=== PATIENT | male | born 1980 ===

== ENCOUNTER 2016-11-17 21:42 | Emergency (ER) | payer MEDICAID, OTHER ==
[~2016-11-17] VITALS: Ht 162.6 cm; Wt 228.6 kg
[~2016-11-17 21:42] MED LIST: ADV250INH IH; HYDR1TAB PO; PRE10 PO; Pro Air INH; SIN10 PO; [UNRECOGNIZED DRUG - CODE] PO
[2016-11-17 22:24] VITALS: BP 129/77; PULSE 107; RESP 18; O2SAT 98
--- NOTE | 2016-11-17 23:29 | ED.REPORT ---
HPI-Rash / Abscess Date of Service Nov 17, 2016 ED Provider: Ella Lau MD This is a 36 year old morbidly obese male with a history of asthma presenting complaining of rash to R leg that began 2 days ago.Rash to posterior L thigh that is constantly painful. Also reports fever with relief from Tylenol. Denies nausea, vomiting, abdominal pain, constipation, diarrhea, cough, or headache. Nursing Notes Stated Complaint: INFECTION OR SPIDER BITE Chief Complaint: Skin Rash/Abscess Nursing Notes Reviewed: Yes Allergies: Coded Allergies: ibuprofen (Verified Allergy, Intermediate, Nausea severe GI distress, 28/08) Scheduled ([Pro Air]) 2 INH BID 2 puffs BID Clindamycin (Clindamycin) 300 Mg Capsule 300 MG PO QID Flutic/Salmet-Expunged Drug, Do Not Renew! (Advair 500/50-Expunged Drug, Do Not Renew!) 60 Puff Disk 1 PUFF IH BID 250/50 Hydrocod/APAP-Expunged, Do Not Renew! (VICODIN 5/500-Expunged Drug, Do Not Renew ) 1 Udtab Tablet 1-2 PO PRN Every 6 hours as needed for pain Methadone-Expunged Drug, Do Not Renew! (Methadone-Expunged Drug, Do Not Renew!) 10 Mg/1 Ml Oral.conc 90 MG PO DAILY Montelukast-Expunged Drug, Do Not Renew! (Singulair-Expunged Drug, Do Not Renew! ) 10 Mg Tablet 10 MG PO DAILY PredniSONE-Expunged Drug, Do Not Renew! (PredniSONE-Expunged Drug, Do Not Renew! ) 10 Mg Tab 10 MG PO DAILY General Time Seen by MD: 23:28 Chief Complaint Rash Hx Obtained From: Patient Arrived By: Walk-in Onset Occurred: 2 days ago Symptom Duration: Since onset Severity: Current: Moderate Pertinent Negative: Pt denies other symptoms Recent Healthcare: No recent doctor visit, No recent hospitalization Similar Sx Previous: No Past Medical History Past Medical History Reports: Asthma Past Surgical History Denies Ambulatory Status Independent Review of Systems Constitutional: Reports: Chills, Fever Respiratory: Denies: Non-productive cough, Shortness of breath GI: Denies: Abdominal pain, Diarrhea, Nausea, Vomiting Musculoskeletal: Reports: Extremity pain Skin: Reports Rash Complete sys rev & neg: except as marked. Physical Exam Initial Vital Signs Vital Signs (First) Date Time Temp Pulse Resp B/P Pulse Ox O2 Delivery O2 Flow Rate FiO2 11/17/16 22:24 37.4 107 18 129/77 98 Room Air Initial VS: Reviewed Head / Eyes: Atraumatic, Normocephalic, PERRL ENT: Mucous membranes moist, Conjunctiva normal, No scleral icterus Neck: Supple, Non-tender, Full range of motion Respiratory: Breath sounds normal, Clear to auscultation, No respiratory distress Abdomen / GI: Soft, Non-tender, No guarding, No rebound, No distention Extremities: Vascular intact, Neuro intact Neurologic: Alert, Oriented, Nonfocal Psychiatric: Mood/affect normal, Behavior normal, Normal thought content General/Constitutional: Awake, Alert Appearance / Presentation: Positive: Obese Skin: Dry Rash / Lesion Location: Positive: Thigh L POsterior R thigh is cellulitis with purulent drainage from a central ulcer. Cardiovascular: Regular rhythm, Heart sounds NL, No gallop, No murmurs, No rubs Heart Rate / Rhythm: Positive: Tachycardia Interpretation & Diagnostics Lab Results Interpretation Result Diagram: 11/18/16 0039 11/18/16 0039 Test 11/18/16 00:39 11/18/16 01:15 White Blood Count 9.5th/mm3 (3.8-10.1) Red Blood Count 4.42mil/mm3 (4.40-5.80) Hemoglobin 11.3g/dL (13.8-17.2) Hematocrit 38.7% (41.0-50.0) Mean Corpuscular Volume 87.6fL (81-100) Mean Corpuscular Hemoglobin 25.6pg (27.0-35.0) Mean Corpuscular Hemoglobin Concent 29.2% (32.0-37.0) Red Cell Distribution Width 15.4% (12.3-15.4) Platelet Count 220bil/L (150-400) Neutrophils (%) (Auto) 71.1% (40-74) Lymphocytes (%) (Auto) 17.2% (14-46) Monocytes (%) (Auto) 7.2% (4-12) Eosinophils (%) (Auto) 3.9% (0-5) Basophils (%) (Auto) 0.4% (0-3) Sodium Level 138mEq/L (134-144) Potassium Level 3.9mEq/L (3.5-5.2) Chloride Level 100mEq/L (97-108) Carbon Dioxide Level 29mmol/L (18-29) Blood Urea Nitrogen 6mg/dL (6-20) Creatinine 0.52mg/dL (0.76-1.27) Estimat Glomerular Filtration Rate 192mL/min (>59) Glucose Level 88mg/dL (60-99) Lactic Acid Level 0.7mmol/L (0.4-2.0) Calcium Level 8.2mg/dL (8.5-10.1) Total Bilirubin 0.5mg/dL (0.0-1.2) Aspartate Amino Transf (AST/SGOT) 10U/L (0-50) Alanine Aminotransferase (ALT/SGPT) 8U/L (0-44) Alkaline Phosphatase 85U/L (25-150) Total Protein 8.1g/dL (6.4-8.4) Albumin 2.9g/dL (3.4-5.0) Urine Color Dark yellow (YELLOW) Urine Appearance Clear (CLEAR,HAZY) Urine pH 8.5 (5.0-8.0) Urine Specific Brady 1.020 (1.003-1.035) Urine Protein Negativemg/dL (NEG,TRACE) Urine Glucose (UA) Negativemg/dL (NEGATIVE) Urine Ketones Negativemg/dL (NEGATIVE) Urine Occult Blood Negative (NEGATIVE) Urine Nitrite Negative (NEGATIVE) Urine Bilirubin Negative (NEGATIVE) Urine Urobilinogen 1.0mg/dL (NORMAL) Urine Leukocyte Esterase Negative (NEGATIVE) Urine RBC 0-2/hpf (0-2) Urine WBC 0-5/hpf (0-5) Urine Epithelial Cells Occasional/hpf (NONE-MOD) Urine Crystals Amorphous phosphates Urine Bacteria Few/hpf (NONE-FEW) Urine Hyaline Casts None/lpf (NONE) Urine Granular Casts None seen (NONE SEEN) Urine Waxy Casts None seen (NONE SEEN) Urine Red Blood Cell Casts None seen (NONE SEEN) Urine White Blood Cell Casts None seen (NONE SEEN) Urine Mucus Present (None Seen) Urine Trichomonas None seen (NONE SEEN) Urine Yeast None (NONE SEEN) Urinalysis Comment None Urine Culture Reflexed Not indicated Re-Eval/Medical Decision Med Decision/Clinical Course 36-year-old super morbidly obese male here with pain to the right posterior thigh. Differential diagnosis includes but is not limited to abscess versus cellulitis versus insect bite versus DVT. Exam is not consistent at this time with DVT. There is purulent drainage from a small ulcer in his posterior thigh with extensive surrounding cellulitis. Patient has normals white count, with very mild anemia. His CMP is unremarkable. He has a negative lactate. I have offered him admission for his cellulitis with abscess, however, he has declined. He has chosen to leave AGAINST MEDICAL ADVICE. He is alert and oriented 4, GCS 15, not clinically intoxicated, and of decision-making capacity. I have explained to him the risks of his leaving, up to and including loss of leg, and , and he does not want to remain in the emergency department, or be admitted to the hospital. I have given him a prescription for clindamycin and advised him to follow up as soon as possible with his primary care physician. He is aware and amenable to this plan and is choosing to leave AGAINST MEDICAL ADVICE. Re-Evaluation/Progress : Time of Eval: 00:53 Re-Evaluation/Progress Note: Discussed need for admission, pt would like to leave AMA Counseled Regarding: Diagnosis, Lab results, Need for follow-up, Need for admission Discharge & Departure Impression: Primary Impression: Cellulitis Site of cellulitis: extremity Site of cellulitis of extremity: lower extremity Laterality: right Qualified Code: L03.115 - Cellulitis of right lower limb Additional Impression: Abscess Disposition: AGAINST MEDICAL ADVICE Discharge Condition All VS Reviewed: Yes Condition: Stable Patient Instructions: Cellulitis (ED) Additional Instructions: You are leaving AGAINST MEDICAL ADVICE. I recommend that you be admitted to the hospital for IV antibiotic treatment but you are choosing to leave. Take the antibiotics as prescribed. Follow-up with your primary care provider. Return to the emergency department for any new or worsening symptom Referrals: Tariq Serra MD (PCP) Scribe Attestation Portions of this note were transcribed by Wili Pappas. I, Dr. Lau personally performed the history, physical exam and medical decision-making; I reviewed and confirmed the accuracy of the information in the transcribed note. Signed by: phyllis Castanon. 11/17/2016, 03:00. Ella Lau MD Nov 17, 2016 23:29 WILI PAPPAS Nov 17, 2016 23:31
[2016-11-17] MEDS ORDERED: 0.9% Sodium Chloride 1,000 ML IV ONE (23:42)
[2016-11-17] MEDS ORDERED: HYDROmorphone 1 mg/mL Inj IVPUSH ONE (23:45)
[2016-11-17] MEDS ORDERED: Vancomycin Inj 1,000 MG in IV Premix 1 EACH IV ONE (23:45)
[2016-11-17] MEDS ORDERED: Piperacillin-Tazo 3.375 Gm Inj 3.375 GM in Dextrose 5% Minibag Plus 50 ML IV ONE (23:45)
[2016-11-18 01:02] LABS: BASOPHILS % (AUTO) 0.4 % (0-3); EOSINOPHILS % (AUTO) 3.9 % (0-5); MONOCYTES % (AUTO) 7.2 % (4-12); Mean Corpuscular Hemoglobin 25.6 pg (27.0-35.0); Mean Corpuscular Volume 87.6 fL (81-100); NEUTROPHILS % (AUTO) 71.1 % (40-74); Platelet Count 220 bil/L (150-400)
[2016-11-18] MEDS ORDERED: HYDROcodone-APAP 5-325 mg Tablet PO ONE (01:35)
[2016-11-18] MEDS ORDERED: CLIN-78 PO (01:49)
[2016-11-18 01:51] LABS: APPEARANCE,URINE CLEAR (CLEAR,HAZY); COLOR,URINE DARK YELLOW (YELLOW); OCCULT BLOOD,URINE NEGATIVE (NEGATIVE); PH,URINE 8.5 (5.0-8.0)
[2016-11-18 03:24] VITALS: BP 94/43; PULSE 98; RESP 20; O2SAT 96
[2016-11-19] MEDS ORDERED: PRE10 PO (01:52)
[2016-11-19] MEDS ORDERED: METH40TA2 PO (01:53)
[2016-11-19] MEDS ORDERED: ALBU8.5H2 INHALATION (21:00)
== END 2016-11-18 03:26 | disposition left against medical advice (07) ==
LOC: SED 21:42
DX: L03.115 Cellulitis of right lower limb (principal); L02.415 Cutaneous abscess of right lower limb; R50.9 Fever, unspecified; J45.909 Unspecified asthma, uncomplicated; Z88.8 Allergy status to other drugs, medicaments and biological substances
CPT/HCPCS: 36415; 80053; 81000; 83605; 85025; 87040; 96361; 96365; 96367; 96375; 99285; J1170; J2543; J3370; J7030

== ENCOUNTER 2016-11-18 17:48 | Inpatient (IN) | payer MEDICAID, OTHER ==
[~2016-11-18] VITALS: Ht 162.6 cm; Wt 225.2 kg
[~2016-11-18 17:48] MED LIST changes: +CLIN-78 PO
[2016-11-18 18:15] VITALS: BP 127/75; PULSE 105; RESP 12; O2SAT 97
--- NOTE | 2016-11-18 19:54 | ED.REPORT ---
HPI-Extremity Problem Lower Date of Service Nov 18, 2016 ED Provider: Luis Driver MD Pt is a 36 year old male with a hx of asthma presenting to the ED complaining of pain, redness and swelling to his right thigh onset 2-3 days ago. Pt was seen in the ED last night, diagnosed with cellulitis and left AMA this morning to get a second opinion. He now returns because the pain is a lot worse. Pt chronically takes 20mg prednisone daily and Advair. Pt took 1 Clindamycin this morning. Nursing Notes Stated Complaint: POSSIBLE CELLULITIS Chief Complaint: Extremity Trauma Nursing Notes Reviewed: Yes Allergies: Coded Allergies: ibuprofen (Verified Allergy, Intermediate, Nausea severe GI distress, 28/08) Scheduled ([Pro Air]) 2 INH BID 2 puffs BID Clindamycin (Clindamycin) 300 Mg Capsule 300 MG PO QID Flutic/Salmet-Expunged Drug, Do Not Renew! (Advair 500/50-Expunged Drug, Do Not Renew!) 60 Puff Disk 1 PUFF IH BID 250/50 Hydrocod/APAP-Expunged, Do Not Renew! (VICODIN 5/500-Expunged Drug, Do Not Renew ) 1 Udtab Tablet 1-2 PO PRN Every 6 hours as needed for pain Methadone-Expunged Drug, Do Not Renew! (Methadone-Expunged Drug, Do Not Renew!) 10 Mg/1 Ml Oral.conc 90 MG PO DAILY Montelukast-Expunged Drug, Do Not Renew! (Singulair-Expunged Drug, Do Not Renew! ) 10 Mg Tablet 10 MG PO DAILY PredniSONE-Expunged Drug, Do Not Renew! (PredniSONE-Expunged Drug, Do Not Renew! ) 10 Mg Tab 10 MG PO DAILY General Time Seen by MD: 19:49 Chief Complaint Other (Possible cellulitis) Hx Obtained From: Patient Arrived By: Walk-in Onset Occurred: 3 days ago Symptom Duration: Since onset Location: : Thigh right Quality: Painful Severity: Current: Severe Severity: Maximum: Severe Recent Healthcare: No recent hospitalization, Recent doctor visit Similar Sx Previous: No Past Medical History Past Medical History Reports: Asthma Past Surgical History Denies Ambulatory Status Independent Review of Systems Constitutional: Denies: Fever Skin: Reports Rash, Reports Swelling Complete sys rev & neg: except as marked. Respiratory: Denies: Shortness of breath GI: Denies: Vomiting Physical Exam Physical Exam Notes: morbidly obese nontoxic Initial Vital Signs Vital Signs (First) Date Time Temp Pulse Resp B/P Pulse Ox O2 Delivery O2 Flow Rate FiO2 11/18/16 18:15 36.2 105 12 127/75 97 Room Air Initial VS: Reviewed Head / Eyes: Atraumatic, Normocephalic, PERRL Abdomen / GI: No distention Upper Extremities: Vascular intact, Neuro intact, No swelling, No tenderness Skin: Warm, Dry, No cyanosis Neurologic: Alert, Oriented, Nonfocal Psychiatric: Mood/affect normal, Behavior normal, Normal thought content Lower Extremity / Pelvis / MS: No deformity, Neurologic intact, Vascular intact Right posterior thigh 10 cm indurated tender area. At the center punctate lesion, doesn't appear to be draining right now. General/Constitutional: Awake, Alert Distress / Hydration: Positive: Distress moderate Appearance / Presentation: Positive: Obese, morbidly Respiratory / Chest: No respiratory distress Wheezing / Retractions: Positive: Wheeze insp/exp diffuse (Scattered) Cardiovascular: Heart rate NL, Regular rhythm, Heart sounds NL, No gallop, No murmurs, No rubs Interpretation & Diagnostics Lab Results Interpretation Result Diagram: 11/18/16202411/18/162024 Test 11/18/16 20:25 11/18/16 20:56 White Blood Count 10.7th/mm3 (3.8-10.1) Red Blood Count 4.19mil/mm3 (4.40-5.80) Hemoglobin 10.6g/dL (13.8-17.2) Hematocrit 36.6% (41.0-50.0) Mean Corpuscular Volume 87.4fL (81-100) Mean Corpuscular Hemoglobin 25.3pg (27.0-35.0) Mean Corpuscular Hemoglobin Concent 29.0% (32.0-37.0) Red Cell Distribution Width 15.3% (12.3-15.4) Platelet Count 231bil/L (150-400) Neutrophils (%) (Auto) 73.6% (40-74) Lymphocytes (%) (Auto) 15.6% (14-46) Monocytes (%) (Auto) 6.3% (4-12) Eosinophils (%) (Auto) 3.8% (0-5) Basophils (%) (Auto) 0.4% (0-3) Sodium Level 138mEq/L (134-144) Potassium Level 3.9mEq/L (3.5-5.2) Chloride Level 101mEq/L (97-108) Carbon Dioxide Level 28mmol/L (18-29) Blood Urea Nitrogen 5mg/dL (6-20) Creatinine 0.45mg/dL (0.76-1.27) Estimat Glomerular Filtration Rate 227mL/min (>59) Glucose Level 87mg/dL (60-99) Calcium Level 7.9mg/dL (8.5-10.1) Total Bilirubin 0.5mg/dL (0.0-1.2) Aspartate Amino Transf (AST/SGOT) 16U/L (0-50) Alanine Aminotransferase (ALT/SGPT) 6U/L (0-44) Alkaline Phosphatase 79U/L (25-150) Total Protein 7.6g/dL (6.4-8.4) Albumin 2.8g/dL (3.4-5.0) Lactic Acid Level 0.8mmol/L (0.4-2.0) Re-Eval/Medical Decision Med Decision/Clinical Course 36-year-old supervision male presenting with a right lower extremity cellulitis. Ultrasound does not identify a significant abscess, he is hemodynamically stable his chronic steroid use is noted. Has been started on Vanco and Zosyn. Will be admitted to the hospitalist service. Re-Evaluation/Progress #1: Time of Eval: 22:09 Patient Status: Condition improved Re-Evaluation/Progress Note: Performed physical exam. Re-Evaluation/Progress #2: Time of Eval: 22:58 Patient Status: Condition improved Re-Evaluation/Progress Note: Discussed plan for admission. Pt understands and agrees with plan. Consultation : Referral / Consult Name: Alee Mckeon MD Consulted With: Hospitalist Call Returned at: 22:45 Die Maker Electronic: Will see patient, Agrees with plan, Accepts admit Counseled Regarding: Diagnosis, Lab results, Need for follow-up, When/why to return to ED Discharge & Departure Impression: Primary Impression: Cellulitis Site of cellulitis: extremity Site of cellulitis of extremity: lower extremity Laterality: right Qualified Code: L03.115 - Cellulitis of right lower limb Disposition: ADMITTED TO HOSPITAL Discharge Condition All VS Reviewed: Yes Condition: Improved Referrals: Tariq Serra MD (PCP) Jeet Attestation Portions of this note were transcribed by Tyesha Tolliver. I, Dr. Driver personally performed the history, physical exam and medical decision-making; I reviewed and confirmed the accuracy of the information in the transcribed note. Signed by : Jeet Newell, 11/18/2016 and 2342. copies to: Tariq Serra MD, Donald L MD Nov 18, 2016 19:54 TYESHA TOLLIVER Nov 18, 2016 20:19
[2016-11-18 20:50] LABS: BASOPHILS % (AUTO) 0.4 % (0-3); EOSINOPHILS % (AUTO) 3.8 % (0-5); MONOCYTES % (AUTO) 6.3 % (4-12); Mean Corpuscular Hemoglobin 25.3 pg (27.0-35.0); Mean Corpuscular Volume 87.4 fL (81-100); NEUTROPHILS % (AUTO) 73.6 % (40-74); Platelet Count 231 bil/L (150-400)
[2016-11-18] MEDS: HYDROmorphone 1 mg/mL Inj IVPUSH PRN (22:41)
[2016-11-18] MEDS ORDERED: Vancomycin Dose per Pharmacist XX SCH (22:45)
[2016-11-18] MEDS ORDERED: Piperacillin-Tazo 3.375 Gm Inj 3.375 GM in Dextrose 5% Minibag Plus 50 ML IV ONE (22:45)
[2016-11-18] MEDS ORDERED: Vancomycin Inj 2,500 MG in 0.9% Sodium Chloride 1,000 ML IV ONE (23:15)
[2016-11-18] MEDS ORDERED: Polyethylene Glycol (PEG) 17 Gm Powder PO PRN (23:20)
[2016-11-18] MEDS ORDERED: fentaNYL-PF 50 mCg/mL 2 mL Inj IV PRN (23:20)
[2016-11-18] MEDS ORDERED: Ondansetron 2 mg/mL 2 mL Inj IVPUSH PRN (23:20)
[2016-11-18] MEDS ORDERED: Alum-Mag Hydrox-Simeth 30 mL Suspension PO PRN (23:20)
--- NOTE | 2016-11-18 23:29 | PCM.HPMED ---
Subjective Date of Service Nov 18, 2016 Primary Provider: Admitting Physician: Primary Care Physician: Tariq Serra MD Attending Physician: Admit Status: From the Emergency Department, Full Admit, Non-Telemetry Chief Complaint: Right posterior thigh cellulitis History of Present Illness: This is a 36-year-old obese male who has a history of asthma for which he is on chronic steroids and has over the past 2-3 days noted increasing redness and pain in his right area Upper posterior. He was seen here in the emergency room for this and left AMA this morning. Over he is back with increasing pain. He denies any fevers or chills. He denies a history of diabetes. He denies a history of obstructive sleep apnea although it is not clear whether he has been checked for this or not. His evaluation in the emergency room includes a count of 10.7. He is afebrile has a heart rate 105 with blood pressure 127/75 and respiratory rate of 12. Lactic acid is 0.8. Bicarbonate is 28. He currently is having an ultrasound of the affected area to see if there is any abscess formation that will require I&D. Review of Systems: Other review of systems are reviewed and are negative except for as in history of present illness. Allergies Coded Allergies: ibuprofen (Verified Allergy, Intermediate, Nausea severe GI distress, 28/08) Home Medications ([Pro Air]) 2 INH BID 2 puffs BID Clindamycin (Clindamycin) 300 Mg Capsule 300 MG PO QID Flutic/Salmet-Expunged Drug, Do Not Renew! (Advair 500/50-Expunged Drug, Do Not Renew!) 60 Puff Disk 1 PUFF IH BID 250/50 Hydrocod/APAP-Expunged, Do Not Renew! (VICODIN 5/500-Expunged Drug, Do Not Renew ) 1 Udtab Tablet 1-2 PO PRN Every 6 hours as needed for pain Methadone-Expunged Drug, Do Not Renew! (Methadone-Expunged Drug, Do Not Renew!) 10 Mg/1 Ml Oral.conc 90 MG PO DAILY Montelukast-Expunged Drug, Do Not Renew! (Singulair-Expunged Drug, Do Not Renew! ) 10 Mg Tablet 10 MG PO DAILY PredniSONE-Expunged Drug, Do Not Renew! (PredniSONE-Expunged Drug, Do Not Renew! ) 10 Mg Tab 10 MG PO DAILY PMH Reports: Asthma Past Surgical History Denies Ambulatory Status Independent Family History Does have a family history of type II diabetes and coronary artery disease Social History Hx Alcohol Use: Yes (OCCASIONAL) Hx Substance Use: No Hx Tobacco Use: Yes (quit 6 months ago) Living Arrangement: with Friends/Roommate (lives with girlfriend) Exam Vital Signs Vital Sign - Last Date Time Temp Pulse Resp B/P Pulse Ox O2 Delivery O2 Flow Rate FiO2 11/18/16 18:15 36.2 105 12 127/75 97 Room Air Exam Constitutional: Morbidly obese male in moderate pain distress Head: Normocephalic atraumatic Eyes: PERRLA DC EOMI Mouth: No lesions Neck no adenopathy Chest clear to auscultation Court regular rate and rhythm S1-S2 without murmur Abdomen soft obese nontender bowel sounds present Extremity exam: Left leg reveals trace bilateral pedal edema obese, right leg reveals indurated protuberant area in the right posterior thigh area about 10 cm of induration. No drainage noted at the center there appears to be a punctate lesion. Skin: As above Psych: Normal mood and affect Neuro: Alert and oriented 3, motor strength is intact bilaterally Lab and Diagnostics Labs Laboratory Tests 72 Hours Test 11/18/16 20:25 11/18/16 20:56 White Blood Count 10.7th/mm3 (3.8-10.1) Red Blood Count 4.19mil/mm3 (4.40-5.80) Hemoglobin 10.6g/dL (13.8-17.2) Hematocrit 36.6% (41.0-50.0) Mean Corpuscular Volume 87.4fL (81-100) Mean Corpuscular Hemoglobin 25.3pg (27.0-35.0) Mean Corpuscular Hemoglobin Concent 29.0% (32.0-37.0) Red Cell Distribution Width 15.3% (12.3-15.4) Platelet Count 231bil/L (150-400) Neutrophils (%) (Auto) 73.6% (40-74) Lymphocytes (%) (Auto) 15.6% (14-46) Monocytes (%) (Auto) 6.3% (4-12) Eosinophils (%) (Auto) 3.8% (0-5) Basophils (%) (Auto) 0.4% (0-3) Sodium Level 138mEq/L (134-144) Potassium Level 3.9mEq/L (3.5-5.2) Chloride Level 101mEq/L (97-108) Carbon Dioxide Level 28mmol/L (18-29) Blood Urea Nitrogen 5mg/dL (6-20) Creatinine 0.45mg/dL (0.76-1.27) Estimat Glomerular Filtration Rate 227mL/min (>59) Glucose Level 87mg/dL (60-99) Calcium Level 7.9mg/dL (8.5-10.1) Total Bilirubin 0.5mg/dL (0.0-1.2) Aspartate Amino Transf (AST/SGOT) 16U/L (0-50) Alanine Aminotransferase (ALT/SGPT) 6U/L (0-44) Alkaline Phosphatase 79U/L (25-150) Total Protein 7.6g/dL (6.4-8.4) Albumin 2.8g/dL (3.4-5.0) Lactic Acid Level 0.8mmol/L (0.4-2.0) Result Diagram: 11/18/16202411/18/162024 Assessment & Plan # Right cellulitis with possible abscess, acute, present on admission IV Zosyn and IV vancomycin will be initiated Await ultrasound report for possible abscess and need for I&D Check nasal MRSA screen # Asthma, chronic, present on admission This is stable. Continue current medications which include chronic steroid therapy # Morbid obesity, chronic, present on admission Encourage weight loss and consider nutritional consult while in-house or outpatient # DVT prophylaxis Placed on subcutaneous prophylactic heparin # Current status Full code Pain Evaluation: Adequate Pain Control VTE Prophylaxis: Sub-Q Heparin (Unfractionated) Resuscitation Status: CPR: Attempt Resuscitation Time spent 60 minutes Alee Mckeon MD Nov 18, 2016 23:29
--- NOTE | 2016-11-18 23:56 | PCM.PHAPRO ---
Progress Date of Service: Nov 18, 2016 Right posterior thigh cellulitis Vancomycin Management per Pharmacy: Indication: Cellulitis of R upper posterior Goal Trough: 10-15 mg/dL Age: 36 yo Weight: 228 kg Labs: WBC: 10.7 SrCr: 0.45 mg/dL Est CrCl: ~120 mL/min Nephrotoxic Risks: Zosyn IV Recommendation: Load: Vancomycin 2500 mg IV x 1 (11 mg/kg) Maintenance Dose: Vancomycin 2000 mg IV Q12h (will start 8 hours post loading dose) Vancomycin trough: Draw on 11/20 @ 1930 prior to 4th maintenance dose Pharmacy to continue to monitor and adjust daily as necessary. Thank You, Sadaf Burns, Pharm D. Sadaf Burns Nov 18, 2016 23:56
[2016-11-19] MEDS: HYDROmorphone 1 mg/mL Inj IVPUSH PRN (00:17)
[2016-11-19 01:02] LABS: APPEARANCE,URINE HAZY (CLEAR,HAZY); COLOR,URINE DARK YELLOW (YELLOW); OCCULT BLOOD,URINE NEGATIVE (NEGATIVE); PH,URINE 7.5 (5.0-8.0)
[2016-11-19 01:04] VITALS: BP 143/72; PULSE 91; RESP 18; O2SAT 90
[2016-11-19] MEDS ORDERED: PRE10 PO (01:52)
[2016-11-19] MEDS ORDERED: METH40TA2 PO (01:53)
--- NOTE | 2016-11-19 02:00 | NUR ---
Admit: Pt arrived to room 3030 from ED via Beri Bed, pt able to stand for weight. Antibiotic infusing, RA, no c/o pain. Admit completed, home medications reviewed with patient and entered; made aware. Pt does take ProAir inhaler, could not verify dosing, just stated he takes it as a rescue inhaler several times a day PRN. [facility]hift will need to verify this medication with pts pharmacy or PCP. Medication is currently in pts med drawer, pt has high anxiety for inhaler to be out of his site. Dayshift RN with need to verify med and then send this medication home with pts family when pharmacy can send up supply for use while in the hospital. pleasant and cooperative with care.
[2016-11-19] MEDS: Heparin 5,000 Unit/mL Inj SUBQ SCH ×3 (02:11→17:20)
[2016-11-19] MEDS: Piperacillin-Tazo 3.375 Gm Inj 3.375 GM in Dextrose 5% Minibag Plus 50 ML IV SCH ×2 (02:11→02:21)
[2016-11-19] MEDS: predniSONE 10 mg Tablet PO SCH ×3 (02:19→17:26)
[2016-11-19] MEDS: Fluticasone-Salmeterol 500-50 Inhaler INHALATION SCH ×3 (03:35→20:16)
[2016-11-19] MEDS: HYDROcodone-APAP 5-325 mg Tablet PO PRN ×3 (03:35→19:41)
--- NOTE | 2016-11-19 04:44 | NUR ---
Oxygen/Pain: Pt placed on 4L O2 with cont pulse ox while sleeping, scored high for GARETT. C/o r leg pain, medication administered. Slept off/on throughout the night, pleasant and cooperative with care.
[2016-11-19 05:56] VITALS: BP 123/66; PULSE 81; RESP 16; O2SAT 93
[2016-11-19] MEDS: 0.9% Sodium Chloride 1,000 ML IV SCH ×2 (07:48→09:17)
[2016-11-19] MEDS ORDERED: METHADONE 40 MG PO SCH (08:00)
[2016-11-19] MEDS ORDERED: Fluticasone-Salmererol 250-50 Inhaler INHALATION SCH (08:30)
[2016-11-19] MEDS: Vancomycin Dose per Pharmacist XX SCH (08:30)
[2016-11-19 09:24] VITALS: PULSE 84; RESP 18; O2SAT 98
[2016-11-19] MEDS: Albuterol 2.5 mg/3 mL Inhalation Solution NEB SCH ×3 (09:24→21:15)
--- NOTE | 2016-11-19 09:26 | NUR ---
Social Work: Screening Data: Pt is a 36 y/o male admitted for R leg abscess cellulitis. Pt's PCP is Dr Serra, pt's insurance is [facility] medicaid with [facility] secondary. EMR reviewed. Pt currently on IV ABX, RESPIRATORY CARE TECHNICIAN will follow if needed at d/c. RESPIRATORY CARE TECHNICIAN will continue to follow for possible d/c planning needs. Assessment: Pt who is independent at baseline. Plan: Pt will d/c home via POV when medically stable. Pt currently on IV ABX, RESPIRATORY CARE TECHNICIAN will follow if needed at d/c. RESPIRATORY CARE TECHNICIAN will continue to follow for possible d/c planning needs. JOSE A Horne
[2016-11-19 09:45] LABS: BASOPHILS % (AUTO) 0.5 % (0-3); EOSINOPHILS % (AUTO) 6.8 % (0-5); MONOCYTES % (AUTO) 7.5 % (4-12); Mean Corpuscular Hemoglobin 25.4 pg (27.0-35.0); Mean Corpuscular Volume 88.1 fL (81-100); NEUTROPHILS % (AUTO) 60.3 % (40-74); Platelet Count 215 bil/L (150-400)
[2016-11-19] MEDS: Vancomycin/500 mL NS IV SCH ×4 (10:01→20:18)
--- NOTE | 2016-11-19 10:05 | DRSVH ---
PROCEDURE: US EXTREMITY SONOGRAM LIMITED ([id number]) INDICATIONS: ? abscess in the posterior right thigh. TECHNIQUE: Real-time scanning was performed of the right posterior thigh, with image documentation. COMPARISON: None. FINDINGS: Edema present. No definite abscess seen. IMPRESSION: Subcutaneous edema but no definite abscess in the right thigh. Dictated by: Ayo Black RRA Interpreted: Victoriano Linares MD on 11/19/2016 at 10:03 Transcribed by: BUNNY on 11/19/2016 at 10:04 Approved by: Victoriano Linares M.D. on 11/19/2016 at 12:43
[2016-11-19 14:30] VITALS: BP 130/64; PULSE 50; RESP 16; O2SAT 93
[2016-11-19 14:35] VITALS: PULSE 90; RESP 14; O2SAT 96
--- NOTE | 2016-11-19 17:30 | PCM.PNMED ---
Subjective Date of Service Nov 19, 2016 Subjective denies any new issues/complaints Exam Vital Signs Vital Sign - Last Date Time Temp Pulse Resp B/P Pulse Ox O2 Delivery O2 Flow Rate FiO2 11/19/16 16:00 Supplement Oxygen 11/19/16 14:35 90 14 96 4.00 11/19/16 14:30 36.6 130/64 Intake and Output 11/18/16 11/18/16 11/19/16 Cumulative From/Thru 15:00 23:00 07:00 11/18/16 18:15 - 11/19/16 06:38 Intake Total 700 ml 700 ml Output Total 175 ml 175 ml Balance 525 ml 525 ml Intake Oral 700 ml 700 ml Output Urine Total 175 ml 175 ml Exam Constitutional: Morbidly obese male in moderate pain distress Head: Normocephalic atraumatic Chest clear to auscultation bilat Court regular rate and rhythm Abdomen soft obese nontender bowel sounds present Extremity exam: Left leg reveals trace bilateral pedal edema obese, right leg reveals indurated protuberant area in the right posterior thigh area about 10 cm of induration. No drainage noted at the center there appears to be a punctate lesion. Neuro: Alert and oriented 3, motor strength is intact bilaterally IVs and Medications Medications Reviewed: Medications were reviewed in detail Lab and Diagnostics Result Diagram: 11/19/1690411/19/16904 Assessment & Plan # Right cellulitis with possible abscess, acute, present on admission IV Zosyn and IV vancomycin ultrasound without evidence of abscess f/u MRSA screen f/u pending cultures consider ID consult in am # Asthma, chronic, present on admission This is stable. Continue current medications which include chronic steroid therapy # Morbid obesity, chronic, present on admission Encourage weight loss and consider nutritional consult while in-house or outpatient Dispo: 2-3 days VTE Prophylaxis: Sub-Q Heparin (Unfractionated) Resuscitation Status: CPR: Attempt Resuscitation Rober Cisneros Nov 19, 2016 17:30
[2016-11-19] MEDS ORDERED: ALBU8.5H2 INHALATION (21:00)
[2016-11-19 21:16] VITALS: PULSE 74; RESP 16; O2SAT 98
[2016-11-20] MEDS: Piperacillin-Tazo 3.375 Gm Inj 3.375 GM in Dextrose 5% Minibag Plus 50 ML IV SCH ×3 (00:22→17:30)
[2016-11-20] MEDS: Heparin 5,000 Unit/mL Inj SUBQ SCH ×3 (00:22→17:31)
[2016-11-20] MEDS: HYDROcodone-APAP 5-325 mg Tablet PO PRN ×3 (00:32→20:41)
[2016-11-20 02:14] VITALS: PULSE 70; RESP 16; O2SAT 99
[2016-11-20] MEDS: Albuterol 2.5 mg/3 mL Inhalation Solution NEB PRN (02:14)
[2016-11-20 04:32] VITALS: BP 132/72; PULSE 78; RESP 16; O2SAT 95
--- NOTE | 2016-11-20 04:52 | NUR ---
PAIN Pt has c/o pain in R leg, rates "4" out of 10, "2" is tolerable. Pt given 2 tabs of prn pain medication, at reassessment, pt states pain at tolerable level, "1 to 2". Dressings to posterior thigh and backside CDI. Wound consult ordered for further care, no current wound care/dressing change orders. Continue to monitor. Call light in reach. Intentional rounding.
[2016-11-20] MEDS: METHADONE 40 MG PO SCH (06:24)
[2016-11-20 07:03] LABS: BASOPHILS % (AUTO) 0.3 % (0-3); EOSINOPHILS % (AUTO) 6.9 % (0-5); MONOCYTES % (AUTO) 7.1 % (4-12); Mean Corpuscular Hemoglobin 25.2 pg (27.0-35.0); Mean Corpuscular Volume 88.2 fL (81-100); Platelet Count 225 bil/L (150-400)
[2016-11-20 07:31] VITALS: PULSE 74; RESP 18; O2SAT 93
[2016-11-20] MEDS: Albuterol 2.5 mg/3 mL Inhalation Solution NEB SCH ×2 (07:31→19:54)
[2016-11-20] MEDS: Vancomycin Dose per Pharmacist XX SCH (08:30)
[2016-11-20] MEDS: Fluticasone-Salmeterol 500-50 Inhaler INHALATION SCH ×2 (08:47→20:30)
[2016-11-20] MEDS: predniSONE 10 mg Tablet PO SCH ×2 (08:47→17:30)
[2016-11-20] MEDS: Vancomycin/500 mL NS IV SCH ×4 (11:35→23:22)
[2016-11-20 13:07] VITALS: BP 123/72; PULSE 82; RESP 16; O2SAT 95
--- NOTE | 2016-11-20 13:20 | PCM.PNMED ---
Subjective Date of Service Nov 20, 2016 Subjective Patient notes pain in right thigh region has improved significantly overnight though still present. Denies fevers chills or sweats overnight as well. No still expressing some discomfort feeling weaker than baseline. Appetite is good however denies any nausea or vomiting. No other complaints at this time Exam Vital Signs Vital Sign - Last Date Time Temp Pulse Resp B/P Pulse Ox O2 Delivery O2 Flow Rate FiO2 11/20/16 13:07 36.6 82 16 123/72 95 Nasal Cannula 4.00 Intake and Output 11/19/16 11/19/16 11/20/16 Cumulative From/Thru 15:00 23:00 07:00 11/18/16 18:15 - 11/20/16 06:29 Intake Total 3023 ml 1307 ml 5030 ml Output Total 1200 ml 1875 ml 3250 ml Balance 1823 ml -568 ml 1780 ml Intake Oral 736 ml 748 ml 2184 ml IV Total 2287 ml 559 ml 2846 ml Output Urine Total 1200 ml 1875 ml 3250 ml Exam Constitutional: Morbidly obese male in mild pain distress Heart: Regular rate and rhythm without murmurs rubs or gallops. Abdomen soft obese nontender bowel sounds present Extremity exam: Posterior right thigh is dressed with a clean bandage demonstrating moderate blood staining and middle bandage region. Area surrounding side of infection is not erythematous or warm, no induration or subcutaneous abscess is palpable. Lower extremities demonstrating stable and trace edema with good pulses noted bilaterally. Neuro: Alert and oriented 3, motor strength is intact bilaterally IVs and Medications Medications Reviewed: Medications were reviewed in detail Lab and Diagnostics Result Diagram: 11/20/1664411/20/16644 Assessment & Plan # Right cellulitis with possible abscess, acute, present on admission - We will continue IV Zosyn and IV vancomycin pending sensitivities - As noted previously , ultrasound without evidence of abscess - f/u pending cultures still pending - Continue to consider ID consult should patient's condition not improve as anticipated. # Asthma, chronic, present on admission This is stable. Continue current medications which include chronic steroid therapy # Morbid obesity, chronic, present on admission Encourage weight loss and consider nutritional consult while in-house or outpatient Dispo: 2 days Pain Evaluation: Adequate Pain Control VTE Prophylaxis: Sub-Q Heparin (Unfractionated) Resuscitation Status: CPR: Attempt Resuscitation Time spent 25 minutes Tay Waggoner DO Nov 20, 2016 13:20
[2016-11-20] MEDS: diphenhydrAMINE 25 mg Capsule PO PRN ×2 (14:21→20:46)
--- NOTE | 2016-11-20 18:04 | NUR ---
Wound Wound evaluation order received, pt seen at bedside. Morbidly obese male, has been treated for nonhealing ulcers in his perirectal region by [facility] wound center. left buttock wound 2 cm L x 2 cm W x 0.2 cm D Right periscrotal ulcer 3 cm L x 2.5 cm W x 0.2 cm D. right posterior thigh ulcer 0.5 cm L x 0.7 cm W x 0.5 cm D. None of these wounds appear infected or undermined or tunneling, they were all cleaned with saline and gauze then redressed with adhesive foam dressings. These wounds are due to abrasion secondary to body habitus, recommend nursing change dressings PRN. Continue to follow up at [facility] on discharge.
[2016-11-20 19:56] VITALS: PULSE 76; RESP 18; O2SAT 98
[2016-11-20 20:19] VITALS: BP 125/65; PULSE 81; RESP 16; O2SAT 97
[2016-11-20] MEDS ORDERED: Vancomycin Serum Trough XX ONE (21:30)
[2016-11-20] MEDS ORDERED: 0.9% Sodium Chloride 100 ML ONE (22:28)
[2016-11-21 00:14] VITALS: PULSE 79; RESP 20; O2SAT 98
[2016-11-21] MEDS: Albuterol 2.5 mg/3 mL Inhalation Solution NEB PRN (00:14)
[2016-11-21] MEDS: Piperacillin-Tazo 3.375 Gm Inj 3.375 GM in Dextrose 5% Minibag Plus 50 ML IV SCH ×3 (01:46→16:59)
[2016-11-21] MEDS: Heparin 5,000 Unit/mL Inj SUBQ SCH ×3 (01:46→17:00)
--- NOTE | 2016-11-21 02:55 | NUR ---
[place] and itching: Patient complains of pain and itching at beginning of shift. Patient was given 325mg of [place] for pain and 25mg of Benadryl for itching. Both medications were effective. Patient is able to move from side to side on his own and is lying supine. Call light is in place and used appropriately.
[2016-11-21] MEDS: diphenhydrAMINE 25 mg Capsule PO PRN ×3 (04:11→19:33)
[2016-11-21 05:10] VITALS: BP 122/64; PULSE 84; RESP 16; O2SAT 96
[2016-11-21] MEDS: METHADONE 40 MG PO SCH (06:41)
[2016-11-21 07:11] LABS: BASOPHILS % (AUTO) 0.4 % (0-3)
[2016-11-21 07:32] LABS: EOSINOPHILS % (AUTO) 6.7 % (0-5); MONOCYTES % (AUTO) 7.2 % (4-12); Mean Corpuscular Hemoglobin 25.6 pg (27.0-35.0); Mean Corpuscular Volume 88.8 fL (81-100); NEUTROPHILS % (AUTO) 67.5 % (40-74); Platelet Count 234 bil/L (150-400)
[2016-11-21] MEDS: Vancomycin Dose per Pharmacist XX SCH (07:34)
[2016-11-21] MEDS: Albuterol 2.5 mg/3 mL Inhalation Solution NEB SCH ×2 (08:30→21:12)
[2016-11-21] MEDS: Fluticasone-Salmeterol 500-50 Inhaler INHALATION SCH ×2 (08:47→22:36)
[2016-11-21] MEDS: predniSONE 10 mg Tablet PO SCH ×2 (08:53→18:40)
[2016-11-21 10:50] VITALS: BP 123/69; PULSE 83; RESP 16; O2SAT 95
[2016-11-21] MEDS: HYDROcodone-APAP 5-325 mg Tablet PO PRN ×2 (11:05→19:37)
[2016-11-21] MEDS: Nystatin 100,000 Unit/Gm 15 Gm Powder TOPICAL SCH ×2 (11:08→22:47)
[2016-11-21 13:01] VITALS: BP 134/64; PULSE 80; RESP 20; O2SAT 90
--- NOTE | 2016-11-21 15:10 | PCM.PNMED ---
Subjective Date of Service Nov 21, 2016 Subjective Pt notes some improvement in thigh pain, now more of a discomfort. Denies sweats /chills overnight. Overall feeling improved but still weaker than baseline. NO other acute complaints at this time. Exam Vital Signs Vital Sign - Last Date Time Temp Pulse Resp B/P Pulse Ox O2 Delivery O2 Flow Rate FiO2 11/21/16 13:01 36.6 80 20 134/64 90 Room Air 11/21/16 10:50 2.00 Intake and Output 11/20/16 11/20/16 11/21/16 Cumulative From/Thru 15:00 23:00 07:00 11/18/16 18:15 - 11/21/16 06:43 Intake Total 700 ml 1680 ml 7410 ml Output Total 900 ml 920 ml 5070 ml Balance -200 ml 760 ml 2340 ml Intake Oral 700 ml 400 ml 3284 ml IV Total 1280 ml 4126 ml Output Urine Total 900 ml 920 ml 5070 ml # Bowel Movements 0 0 Exam Constitutional: Morbidly obese male in mild pain distress Heart: Regular rate and rhythm without murmurs rubs or gallops. Abdomen soft obese nontender bowel sounds present Extremity exam: Posterior right thigh is dressed with a clean bandage. Neuro: Alert and oriented 3, motor strength is intact bilaterally IVs and Medications Medications Reviewed: Medications were reviewed in detail Lab and Diagnostics Result Diagram: 11/21/16 0650 11/21/16 0650 Assessment & Plan # Right cellulitis with possible abscess, acute, present on admission - We will continue IV Zosyn at this time, IV vancomycin discontinued give results of wound culture sensitivities - As noted previously , ultrasound without evidence of abscess - Continue to consider ID consult should patient's condition not improve as anticipated. - Anticipate transition to oral antibiotic therpay and DC over weekend. # Asthma, chronic, present on admission This is stable. Continue current medications which include chronic steroid therapy #GARETT: Continue CPAP overnight. # Morbid obesity, chronic, present on admission Encourage weight loss and consider nutritional consult while in-house or outpatient Dispo: 1-2 days Pain Evaluation: Adequate Pain Control VTE Prophylaxis: Sub-Q Heparin (Unfractionated) Resuscitation Status: CPR: Attempt Resuscitation Time spent 25 minutes Tay Waggoner DO Nov 21, 2016 15:10
--- NOTE | 2016-11-21 19:12 | NUR ---
Activity and Skin Sores on backside present, followed by wound care. Weight requires bariatric bed. Up to edge of bed for lunch; requiring heavy encouragement for activity, but uses minimal assistance for activity in bed, other than trapeze handle. Stood at bedside for dressing changes; minimal drainage, calmoseptine and mepilex in place.
[2016-11-21 20:47] VITALS: BP 115/68; PULSE 73; RESP 20; O2SAT 94
[2016-11-21 21:12] VITALS: PULSE 70; RESP 18; O2SAT 93
[2016-11-22] MEDS: Heparin 5,000 Unit/mL Inj SUBQ SCH ×3 (00:33→16:58)
[2016-11-22] MEDS: Piperacillin-Tazo 3.375 Gm Inj 3.375 GM in Dextrose 5% Minibag Plus 50 ML IV SCH ×3 (00:33→16:56)
[2016-11-22] MEDS ORDERED: 0.9% Sodium Chloride 100 ML ONE ×2 (00:38→23:53)
[2016-11-22] MEDS: diphenhydrAMINE 25 mg Capsule PO PRN ×4 (01:52→23:58)
[2016-11-22] MEDS: HYDROcodone-APAP 5-325 mg Tablet PO PRN ×4 (01:55→23:59)
[2016-11-22 05:15] VITALS: BP 126/74; PULSE 72; RESP 18; O2SAT 95
[2016-11-22] MEDS: Albuterol 2.5 mg/3 mL Inhalation Solution NEB PRN (05:19)
[2016-11-22 05:20] VITALS: O2SAT 95
--- NOTE | 2016-11-22 05:42 | NUR ---
Nystatin powder: Patient requested that the Nystatin powder be used. Powder was placed in patient's skin folds under arms sides and front of abdomen. Patient was asked if he wanted the powder on his backside and he said he did not.
[2016-11-22 06:39] LABS: BASOPHILS % (AUTO) 0.5 % (0-3); MONOCYTES % (AUTO) 7.4 % (4-12); Mean Corpuscular Hemoglobin 25.9 pg (27.0-35.0); Mean Corpuscular Volume 89.2 fL (81-100); NEUTROPHILS % (AUTO) 63.9 % (40-74); Platelet Count 219 bil/L (150-400)
[2016-11-22] MEDS: METHADONE 40 MG PO SCH (06:40)
[2016-11-22] MEDS: Nystatin 100,000 Unit/Gm 15 Gm Powder TOPICAL SCH ×2 (09:06→23:58)
[2016-11-22 13:46] VITALS: BP 126/69; PULSE 72; RESP 18; O2SAT 92
[2016-11-22] MEDS: Albuterol 2.5 mg/3 mL Inhalation Solution NEB SCH ×2 (15:09→21:07)
[2016-11-22 15:10] VITALS: PULSE 76; RESP 20; O2SAT 92
--- NOTE | 2016-11-22 15:27 | PCM.PNMED ---
Subjective Date of Service Nov 22, 2016 Subjective Patient is still utilizing some oxygen the day which is not his baseline, but is unsure if he needs it or is just using it because available. Pain in his posterior thigh is still present but has improved. He has not experienced any fever chills over the past 24 hours. All other acute complaints or concerns at this time, still feeling a little weak but certainly much improved since his presentation. Exam Vital Signs Vital Sign - Last Date Time Temp Pulse Resp B/P Pulse Ox O2 Delivery O2 Flow Rate FiO2 11/22/16 15:10 76 20 92 Nasal Cannula 2.00 11/22/16 13:46 36.8 126/69 Intake and Output 11/21/16 11/21/16 11/22/16 Cumulative From/Thru 15:00 23:00 07:00 11/18/16 18:15 - 11/22/16 06:31 Intake Total 863 ml 1135 ml 9408 ml Output Total 1140 ml 1600 ml 7810 ml Balance -277 ml -465 ml 1598 ml Intake Oral 709 ml 1135 ml 5128 ml IV Total 154 ml 4280 ml Output Urine Total 1140 ml 1600 ml 7810 ml # Bowel Movements 0 0 0 Exam Constitutional: Morbidly obese male in mild pain distress, wearing oxygen but in no apparent respiratory distress. Heart: Regular rate and rhythm without murmurs rubs or gallops. Abdomen soft obese nontender bowel sounds present Extremity exam: Posterior right thigh is dressed with a clean bandage. Neuro: Alert and oriented 3, motor strength is intact bilaterally IVs and Medications Medications Reviewed: Medications were reviewed in detail Lab and Diagnostics Result Diagram: 11/22/16 0500 11/22/16 0555 Assessment & Plan # Right cellulitis with possible abscess, acute, present on admission - We will continue IV Zosyn at this time, IV vancomycin discontinued give results of wound culture sensitivities - Plan to transition the doxycycline tomorrow and discontinue IV therapy in anticipation of discharge. - As noted previously , ultrasound without evidence of abscess # Asthma, chronic, present on admission This is stable. Continue current medications which include chronic steroid therapy Patient will be trailed off oxygen therapy, to confirm is a baseline respiration status. #GARETT: Continue CPAP overnight. # Morbid obesity, chronic, present on admission Encourage weight loss and consider nutritional consult outpatient Pain Evaluation: Adequate Pain Control VTE Prophylaxis: Sub-Q Heparin (Unfractionated) Resuscitation Status: CPR: Attempt Resuscitation Time spent 20 minutes Tay Waggoner DO Nov 22, 2016 15:27
[2016-11-22] MEDS: predniSONE 10 mg Tablet PO SCH ×2 (17:30→19:42)
--- NOTE | 2016-11-22 18:27 | NUR ---
Activity Pt in bed for most of day, sleeping often with 2L NC and CPOX in place. Spoke with MD, directed to titrate O2 to help assess needs for home O2. Pt reports that he uses home O2 when sleeping. SPO2 reduced to mid 80's when pt falls asleep in bed. Placed back on 2L when pt appears to be dozing off. Pt up to bathroom with FWW and SBA/1PA. Steady but slow on feet. SPO2 reduced to mid 80's with activity. Reports mild SOB.
[2016-11-22] MEDS: Fluticasone-Salmeterol 500-50 Inhaler INHALATION SCH ×2 (19:42→20:11)
[2016-11-22 20:26] VITALS: BP 130/72; PULSE 70; RESP 18; O2SAT 94
[2016-11-22 21:08] VITALS: PULSE 80; RESP 20; O2SAT 83
[2016-11-23] MEDS: Piperacillin-Tazo 3.375 Gm Inj 3.375 GM in Dextrose 5% Minibag Plus 50 ML IV SCH ×2 (00:49→08:32)
[2016-11-23] MEDS: Heparin 5,000 Unit/mL Inj SUBQ SCH ×2 (00:49→08:33)
--- NOTE | 2016-11-23 04:27 | NUR ---
Pain Pt complained of leg pain 12/12. Administered [place] 2-tablets. Pt resting in bed. No s/sx of pain or discomfort at this time. Denies SOB. Attempted to titrate O2 to 1L during shift, tolerated until sleeping then desats into 80's. O2 turned back up to 2L for sleep.Call light within reach. Cooperative with care.
[2016-11-23 05:16] VITALS: BP 117/69; PULSE 79; RESP 18; O2SAT 94
[2016-11-23] MEDS: METHADONE 40 MG PO SCH (07:10)
[2016-11-23] MEDS ORDERED: NYST1POW25 TOPICAL (08:09)
[2016-11-23] MEDS ORDERED: DOXY100C2 PO (08:09)
[2016-11-23] MEDS ORDERED: HYDR-4003 PO (08:09)
--- NOTE | 2016-11-23 08:12 | PCM.DIMED ---
Discharge Instructions Date of Service Nov 23, 2016 Dates of Hospitalization Nov 19, 2016 at 00:22 Discharge Diagnosis Discharge Diagnosis # Right cellulitis with possible abscess, acute, present on admission # Asthma, chronic, present on admission #GARETT: # Morbid obesity, chronic, present on admission Diet Low fat, Low Sodium Activity No restrictions Call your provider Fever or Chills Patient Instructions Complete all antibiotic (Doxycycline) as prescribed until pills run out, starting tomorrow morning (11/24/2016) Continue to utilize topical Nystatin powder on fungal rash until resolved. FU with PCP in 1 week for further evaluation. Daily dressing changes of ulcer until closed/healed. Follow-up Provider: Tariq Serra MD Follow-up with PCP in: 1 week Tay Waggoner DO Nov 23, 2016 08:12
--- NOTE | 2016-11-23 08:18 | PCM.DC.MED ---
Discharge Summary Date of Service Nov 23, 2016 Dates of Hospitalization Date of Hospital Admission Nov 19, 2016 at 00:22 Date of Discharge: Nov 23, 2016 Providers: Admitting Physician: Alee Mckeon MD Primary Care Physician: Tariq Serra MD Attending Physician: Alee Mckeon MD Diagnosis at Time of Discharge Diagnosis at Time of Discharge # Right cellulitis with possible abscess, acute, present on admission # Asthma, chronic, present on admission #GARETT: # Morbid obesity, chronic, present on admission Procedures XRay, CTs & MRIs Date of Service: 11/18/162213 PROCEDURE: US EXTREMITY SONOGRAM LIMITED ([id number]) INDICATIONS: ? abscess in the posterior right thigh. TECHNIQUE: Real-time scanning was performed of the right posterior thigh, with image documentation. COMPARISON: None. FINDINGS: Edema present. No definite abscess seen. IMPRESSION: Subcutaneous edema but no definite abscess in the right thigh. Dictated by: Ayo Black [facility] Interpreted: Victoriano Linares MD on 11/19/2016 at 10:03 Brief History This is a 36-year-old obese male who has a history of asthma for which he is on chronic steroids and has over the past 2-3 days noted increasing redness and pain in his right area Upper posterior. He was seen here in the emergency room for this and left AMA this morning. Over he is back with increasing pain. He denies any fevers or chills. He denies a history of diabetes. He denies a history of obstructive sleep apnea although it is not clear whether he has been checked for this or not. His evaluation in the emergency room includes a count of 10.7. He is afebrile has a heart rate 105 with blood pressure 127/75 and respiratory rate of 12. Lactic acid is 0.8. Bicarbonate is 28. He currently is having an ultrasound of the affected area to see if there is any abscess formation that will require I&D. Hospital Course # Right cellulitis with possible abscess, acute, present on admission: Patient was started on IV Zosyn pending cultures and improvement in his condition. He was afebrile greater than 48 hours without a leukocytosis at time of discharge, following 5 days of intravenous antibiotic therapy, initially including vancomycin which was discontinued after wound culture and nasal swabs did not demonstrate evidence of MRSA. He was transitioned to oral doxycycline on day of discharge to be continued for 5 additional days for a total of 10 days of therapy. He plans daily dressing changes to be assisted by his girlfriend in this endeavor, follow-up with primary care doctor in 1 week for further assessment of wound to ensure resolution. #Topical fungal dermatitis: His condition was mild in nature present in skin folds due to his body habitus. He was provided nystatin powder which is utilized to hospitalization and prescribed the time of discharge to be used until resolution rash. #Asthma/GARETT - Chronic respiratory condition patient does have home oxygen and CPAP to be utilized at night, and the days he was using oxygen which he said made her more comfortable to breathe however did not require this during the days unless he was sleeping hours times he did demonstrate a desaturation. At home patient will continue CPAP when sleeping to prevent closure of airway. #Morbid obesity Present on admission, patient provided some counseling on the benefits of increased activity and dietary changes however this will need to be continually encourage an outpatient setting as well should patient have success with weight loss. Exam Vital Signs (Last) Date Time Temp Pulse Resp B/P Pulse Ox O2 Delivery O2 Flow Rate FiO2 11/23/16 05:16 36.8 79 18 117/69 94 Room Air 2.00 Exam Morbidly obese male laying in hospital bed in no acute distress Wound is dressed with clean dry dressing not assessed at time of discharge. His breathing with some effort but is stable on room air, heart is of regular rate and rhythm. Test 11/18/16 20:56 11/19/16 00:45 11/20/16 20:49 11/22/16 05:00 Lactic Acid Level 0.8mmol/L (0.4-2.0) Urine Color Dark yellow (YELLOW) Urine Appearance Hazy (CLEAR,HAZY) Urine pH 7.5 (5.0-8.0) Urine Specific [place] 1.020 (1.003-1.035) Urine Protein Negativemg/dL (NEG,TRACE) Urine Glucose (UA) Negativemg/dL (NEGATIVE) Urine Ketones Negativemg/dL (NEGATIVE) Urine Occult Blood Negative (NEGATIVE) Urine Nitrite Negative (NEGATIVE) Urine Bilirubin Negative (NEGATIVE) Urine Urobilinogen 4.0mg/dL (NORMAL) Urine Leukocyte Esterase Negative (NEGATIVE) Urine RBC 3-10/hpf (0-2) Urine WBC 0-5/hpf (0-5) Urine Epithelial Cells Few/hpf (NONE-MOD) Urine Crystals Amorphous phosphates Urine Bacteria Few/hpf (NONE-FEW) Urine Hyaline Casts None/lpf (NONE) Urine Granular Casts None seen (NONE SEEN) Urine Waxy Casts None seen (NONE SEEN) Urine Red Blood Cell Casts None seen (NONE SEEN) Urine White Blood Cell Casts None seen (NONE SEEN) Urine Mucus Present (None Seen) Urine Trichomonas None seen (NONE SEEN) Urine Yeast None (NONE SEEN) Urinalysis Comment None Urine Culture Reflexed Not indicated Vancomycin Level Trough 9.4mcg/mL White Blood Count 8.5th/mm3 (3.8-10.1) Red Blood Count 4.25mil/mm3 (4.40-5.80) Hemoglobin 11.0g/dL (13.8-17.2) Hematocrit 37.9% (41.0-50.0) Mean Corpuscular Volume 89.2fL (81-100) Mean Corpuscular Hemoglobin 25.9pg (27.0-35.0) Mean Corpuscular Hemoglobin Concent 29.0% (32.0-37.0) Red Cell Distribution Width 15.1% (12.3-15.4) Platelet Count 219bil/L (150-400) Neutrophils (%) (Auto) 63.9% (40-74) Lymphocytes (%) (Auto) 21.0% (14-46) Monocytes (%) (Auto) 7.4% (4-12) Eosinophils (%) (Auto) 7.0% (0-5) Basophils (%) (Auto) 0.5% (0-3) Test 11/22/16 05:55 11/22/16 10:28 Sodium Level 138mEq/L (134-144) Potassium Level 4.2mEq/L (3.5-5.2) Chloride Level 99mEq/L (97-108) Carbon Dioxide Level 33mmol/L (18-29) Blood Urea Nitrogen 8mg/dL (6-20) Creatinine 0.46mg/dL (0.76-1.27) Estimat Glomerular Filtration Rate 221mL/min (>59) Glucose Level 103mg/dL (60-99) Calcium Level 7.7mg/dL (8.5-10.1) Total Bilirubin 0.2mg/dL (0.0-1.2) Aspartate Amino Transf (AST/SGOT) 14U/L (0-50) Alanine Aminotransferase (ALT/SGPT) 7U/L (0-44) Alkaline Phosphatase 79U/L (25-150) Total Protein 7.0g/dL (6.4-8.4) Albumin 2.9g/dL (3.4-5.0) Hold Purple Top Tube Received (Received) Hold [place] Top Tube Received (Received) Discharge Medications Discharge Medications Doxycycline Hyclate (Doxycycline Hyclate) 100 Mg Capsule 100 MG PO BID Prescribed by: SABI URIBE DO Methadone (Methadone) 40 Mg Tablet.gil 90 MG PO DAILYWM (Reported) Nystatin (Nystatin) 1 Each Powder.ea. 1 APPLIC TOPICAL BID Prescribed by: SABI URIBE DO Prednisone (PredniSONE) 10 Mg Tablet 10 MG PO BID (Reported) As needed Albuterol HFA (Proair HFA) 8.5 Gm Hfa.aer.ad 2 PUFFS INHALATION Q4H PRN PRN For Shortness of Breath (Reported) Hydrocodone-Acetaminophen 5-325 mg (Hydrocodone-Acetaminophen 5-325 mg) 1 Each Tablet 1-2 TABLET PO Q4H PRN PRN For Moderate Pain Prescribed by: SABI URIBE DO Followup Plan Disposition: Discharged home Discharge Diet: Low fat, Low Sodium Discharge Activity: No restrictions Patient Instructions Complete all antibiotic (Doxycycline) as prescribed until pills run out, starting tomorrow morning (11/24/2016) Continue to utilize topical Nystatin powder on fungal rash until resolved. FU with PCP in 1 week for further evaluation. Daily dressing changes of ulcer until closed/healed. Follow-up Provider: Tariq Serra MD Follow-up with PCP in: 1 week Time spent 40 minutes copies to: Tariq Serra MD, Benjamin P DO Nov 23, 2016 08:18
[2016-11-23] MEDS: diphenhydrAMINE 25 mg Capsule PO PRN (08:30)
[2016-11-23] MEDS: predniSONE 10 mg Tablet PO SCH (08:31)
[2016-11-23] MEDS: Fluticasone-Salmeterol 500-50 Inhaler INHALATION SCH (08:31)
[2016-11-23] MEDS: HYDROcodone-APAP 5-325 mg Tablet PO PRN (08:31)
[2016-11-23] MEDS: Nystatin 100,000 Unit/Gm 15 Gm Powder TOPICAL SCH (08:33)
[2016-11-23 10:31] VITALS: PULSE 75; RESP 20; O2SAT 94
[2016-11-23] MEDS: Albuterol 2.5 mg/3 mL Inhalation Solution NEB SCH (10:31)
--- NOTE | 2016-11-23 15:23 | NUR ---
Discharge Patient discharge to home with all belongings. Explained to patient new medications (doxycycline, hydrocodone, nystatin), when next medications are due and discharge instructions. Patient verbalized understanding. Dc'd IV intact. Vitals stable. Patient left floor via wheelchair accompanied by MANAGER COSTING and girlfriend with no signs of distress.
--- NOTE | 2016-11-23 15:40 | NUR ---
Social Work: Discharge Data: Pt is on day 7 of hospitalization. EMR reviewed. D/C orders are in. Pt's IVABX were transitioned to POABX. No further d/c planning needs at this time. DIESEL DINKEY ENGINEER will continue to follow if needs arise. Assessment: Pt who is independent at baseline. Plan: Pt will d/c home via POV today. Pt's IVABX were transitioned to POABX. No further d/c planning needs at this time. DIESEL DINKEY ENGINEER will continue to follow if needs arise. JOSE A Horne
== END 2016-11-23 15:21 | disposition home or self-care (01) | DRG 383 ==
LOC: SED 17:48 → MPC 11-19 00:22
PROVIDERS: ADMIT Specialist; ATTEND Specialist
DX: L03.115 Cellulitis of right lower limb (principal); Z68.45 Body mass index [BMI] 70 or greater, adult; J45.909 Unspecified asthma, uncomplicated; G47.33 Obstructive sleep apnea (adult) (pediatric); E66.01 Morbid (severe) obesity due to excess calories; Z87.891 Personal history of nicotine dependence; L02.415 Cutaneous abscess of right lower limb; Z79.52 Long term (current) use of systemic steroids; B95.61 Methicillin susceptible Staphylococcus aureus infection as the cause of diseases classified elsewhere

== ENCOUNTER 2017-06-10 19:20 | Emergency (ER) | payer MEDICAID, OTHER ==
[~2017-06-10] VITALS: Ht 162.6 cm; Wt 231.8 kg
[~2017-06-10 19:20] MED LIST changes: -ADV250INH IH; +ALBU8.5H2 INHALATION; -CLIN-78 PO; +DOXY100C2 PO; +HYDR-4003 PO; -HYDR1TAB PO; +METH40TA2 PO; +NYST1POW25 TOPICAL; -Pro Air INH; -SIN10 PO; -[UNRECOGNIZED DRUG - CODE] PO
[2017-06-10 19:25] VITALS: BP 142/83; PULSE 102; RESP 24; O2SAT 98
[2017-06-10] MEDS ORDERED: 0.9% Sodium Chloride 1,000 ML IV ONE (19:49)
--- NOTE | 2017-06-10 19:49 | ED.REPORT ---
HPI-General Illness Date of Service Jun 10, 2017 ED Provider: Dr. Dobbs Pt is a 36 year old male with a hx of morbid obesity >500 lbs, kidney stones and asthma presenting to the ED complaining of severe sudden sharp shooting right flank pain and hematuria onset 30 minutes prior to arrival. Associated symptoms include nausea. Denies fever, vomiting, dysuria, urinary frequency, chest pain, SOB or abdominal pain. He was voiding urine when symptoms suddenly began. He reports that he has had one kidney stone in the past with nearly identical presentation. He reports that he was seen at [facility] and did not get a CT or an ultrasound but did have an x ray when he was originally diagnosed with kidney stones. He is unable to previously get a CAT scan as he has too large to fit in the scanner. He denies any other symptoms or medical history. Nursing Notes Stated Complaint: BACK PAIN, BLOOD IN URINE Chief Complaint: Back Pain or Injury Nursing Notes Reviewed: Yes Allergies: Coded Allergies: ibuprofen (Verified Allergy, Intermediate, Nausea severe GI distress, 06/10/17) Scheduled Doxycycline Hyclate (Doxycycline Hyclate) 100 Mg Capsule 100 MG PO BID Methadone (Methadone) 40 Mg Tablet.igl 90 MG PO DAILYWM Nystatin (Nystatin) 1 Each Powder.ea. 1 APPLIC TOPICAL BID Prednisone (PredniSONE) 10 Mg Tablet 10 MG PO BID Tamsulosin (Flomax) 0.4 Mg Capsule 0.4 MG PO DAILY Scheduled PRN Albuterol HFA (Proair HFA) 8.5 Gm Hfa.aer.ad 2 PUFFS INHALATION Q4H PRN PRN For Shortness of Breath Hydrocodone-Acetaminophen 5-325 mg (Hydrocodone-Acetaminophen 5-325 mg) 1 Each Tablet 1-2 TABLET PO Q4H PRN PRN For Moderate Pain General Time Seen by MD: 19:48 Chief Complaint Other (Flank pain) Hx Obtained From: Patient Arrived By: Walk-in Sudden in Onset?: Yes Onset Occurred: Just prior to arrival Symptom Duration: Since onset Quality: Painful Severity: Current: Severe Severity: Maximum: Severe Recent Healthcare: No recent hospitalization, Recent doctor visit Similar Sx Previous: Yes Past Medical History Past Medical History Kidney stones Reports: Asthma Past Surgical History Denies Smoking History Never Smoker Ambulatory Status Independent Review of Systems Full Review of Systems Constitutional: Denies: Fever Respiratory: Denies: Shortness of breath Cardiovascular: Denies: Chest pain GI: Reports: Nausea, Denies: Vomiting Male: Reports Flank pain, Reports Hematuria Complete sys rev & neg: except as marked. Physical Exam Vital Signs Vital Signs Date Time Temp Pulse Resp B/P Pulse Ox O2 Delivery O2 Flow Rate FiO2 06/10/17 21:47 36.9 98 20 144/80 99 Room Air 06/10/17 19:25 37.0 102 24 142/83 98 Room Air Initial VS: Reviewed Head / Eyes: Atraumatic, Normocephalic, PERRL ENT: Mucous membranes moist, Conjunctiva normal, No scleral icterus Neck: Supple, Non-tender, Full range of motion Cardiovascular: Regular rate & rhythm, Heart sounds normal, Intact distal pulses Abdomen / GI: Soft, Non-tender, No guarding, No rebound, No distention Extremities: Vascular intact, Neuro intact, No swelling, No tenderness Skin: Warm, Dry, No cyanosis Neurologic: Alert, Oriented, Nonfocal Psychiatric: Mood/affect normal, Behavior normal, Normal thought content General/Constitutional: Awake, Alert, No acute distress Respiratory / Chest: Atraumatic, Breath sounds = bilat Mild expiratory wheezing Interpretation & Diagnostics Lab Results Interpretation Result Diagram: 06/10/17 2030 06/10/17 2030 Test 06/10/17 19:57 06/10/17 20:30 Urine Color Yellow (YELLOW) Urine Appearance Cloudy (CLEAR,HAZY) Urine pH 5.5 (5.0-8.0) Urine Specific [place] 1.010 (1.003-1.035) Urine Protein Tracemg/dL (NEG,TRACE) Urine Glucose (UA) Negativemg/dL (NEGATIVE) Urine Ketones Negativemg/dL (NEGATIVE) Urine Occult Blood Large (NEGATIVE) Urine Nitrite Negative (NEGATIVE) Urine Bilirubin Negative (NEGATIVE) Urine Urobilinogen 1.0mg/dL (NORMAL) Urine Leukocyte Esterase Trace (NEGATIVE) Urine RBC 11-50/hpf (0-2) Urine WBC N/hpf (0-5) Urine Epithelial Cells None/hpf (NONE-MOD) Urine Crystals None seen (NONE SEEN) Urine Bacteria None/hpf (NONE-FEW) Urine Hyaline Casts None/lpf (NONE) Urine Granular Casts None seen (NONE SEEN) Urine Waxy Casts None seen (NONE SEEN) Urine Red Blood Cell Casts None seen (NONE SEEN) Urine White Blood Cell Casts None seen (NONE SEEN) Urine Mucus None seen (None Seen) Urine Trichomonas None seen (NONE SEEN) Urine Yeast None (NONE SEEN) Urinalysis Comment None Urine Culture Reflexed Indicated White Blood Count 8.4th/mm3 (3.8-10.1) Red Blood Count 4.62mil/mm3 (4.40-5.80) Hemoglobin 11.8g/dL (13.8-17.2) Hematocrit 39.6% (41.0-50.0) Mean Corpuscular Volume 85.7fL (81-100) Mean Corpuscular Hemoglobin 25.5pg (27.0-35.0) Mean Corpuscular Hemoglobin Concent 29.8% (32.0-37.0) Red Cell Distribution Width 14.9% (12.3-15.4) Platelet Count 216bil/L (150-400) Neutrophils (%) (Auto) 65.0% (40-74) Lymphocytes (%) (Auto) 18.8% (14-46) Monocytes (%) (Auto) 7.2% (4-12) Eosinophils (%) (Auto) 8.4% (0-5) Basophils (%) (Auto) 0.5% (0-3) Sodium Level 141mEq/L (134-144) Potassium Level 3.7mEq/L (3.5-5.2) Chloride Level 100mEq/L (97-108) Carbon Dioxide Level 28mmol/L (18-29) Blood Urea Nitrogen 7mg/dL (6-20) Creatinine 0.60mg/dL (0.76-1.27) Estimat Glomerular Filtration Rate 163mL/min (>59) Glucose Level 113mg/dL (60-99) Calcium Level 8.5mg/dL (8.5-10.1) Magnesium Level 2.2mg/dL (1.6-2.6) Total Bilirubin 0.6mg/dL (0.0-1.2) Aspartate Amino Transf (AST/SGOT) 15U/L (0-50) Alanine Aminotransferase (ALT/SGPT) 8U/L (0-44) Alkaline Phosphatase 102U/L (25-150) Total Protein 8.3g/dL (6.4-8.4) Albumin 3.2g/dL (3.4-5.0) Lipase 11U/L (13-60) Hold Lennon Top Tube Received (Received) Re-Eval/Medical Decision Med Decision/Clinical Course Pt is a 36 year old male with a hx of morbid obesity >500 lbs, kidney stones and asthma presenting to the ED complaining of severe sudden sharp shooting right flank pain and hematuria onset 30 minutes prior to arrival. Associated symptoms include nausea. Denies fever, vomiting, dysuria, urinary frequency, chest pain, SOB or abdominal pain. He was voiding urine when symptoms suddenly began. He reports that he has had one kidney stone in the past with nearly identical presentation. He reports that he was seen at [facility] and did not get a CT or an ultrasound but did have an x ray when he was originally diagnosed with kidney stones. He is unable to previously get a CAT scan as he has too large to fit in the scanner. He denies any other symptoms or medical history. Here in the emergency department the patient is afebrile, hemodynamically stable and in no apparent distress. Of note, he has absolutely no abdominal tenderness to firm palpation in all 4 quadrants and has no percussive flank tenderness. The patient was treated with the below medications and reported dramatic improvement in his symptoms: IV fluids, Zofran, Toradol, and hydromorphone for pain Urinalysis notable for trace leukocytes and large blood. Unconvincing for infection. Lab for studies were reviewed as below: CBC unremarkable. CMP unremarkable, good renal function. UA large blood, trace leukesterase. No WBCs or bacteria. My initial plan was to obtain CT scan to definitively assess the presence of kidney stones though the patient was too large to fit on the scanner. I considered ultrasound however was not felt that this would be of much diagnostic utility given his extreme adiposity, likewise it was not felt that plain films of the abdomen would be likely to visualize a kidney stone given his size. At this time, there are no findings on laboratory studies or abdominal examination suggestive of an acute surgical process such as bowel obstruction, acute appendicitis, acute mesenteric ischemia. The presentation is not consistent with acute aortic dissection. Urinalysis reveals blood and no signs of UTI further raising my suspicion that his presentation is in fact due to renal colic. Given limitations and availability of imaging studies I discussed the patient with urology. They agree that the patient should receive imaging studies though they do not feel that needs to be done on an emergent basis. Given that his presentation is completely consistent with renal colic they would recommend treating him and they will follow-up with him in clinic. They will work on arranging a CT scan on an outpatient basis to definitively diagnose his kidney stones. In the meantime he will be discharged with a prescription for pain medications and tamsulosin. He is advised to come back immediately for any worsening or changing symptoms or development of fever/ dysuria. The patient is comfortable with this plan. Prior to discharge follow- up and return precautions were reviewed in detail with the patient who verbalized understanding and agreement with the plan. The patient was discharged in stable condition. Time of Eval: 20:56 Patient Status: Condition improved Re-Evaluation/Progress Note: Discussed plan for discharge. Pt understands and agrees with plan. Consultation : Referral / Consult Name: Lucille Fletcher MD Consulted With: Urology Call Returned at: 20:56 Note: She would presumptively treat as renal colic. She will see him tomorrow in the clinic. Counseled Regarding: Diagnosis, Lab results, Need for follow-up, When/why to return to ED Discharge & Departure Primary Impression: Right flank pain Additional Impressions: Hematuria Renal colic on right side Morbid obesity Obesity type: unspecified obesity type Qualified Code: E66.01 - Morbid ( severe) obesity due to excess calories Disposition: Home Discharge Condition All VS Reviewed: Yes Condition: Improved Patient Instructions: Flank Pain (ED), Hematuria (ED), Renal Colic (ED) Additional Instructions: Thank you for seeking care at the emergency room. It is difficult for us to make definitive diagnoses in the ED but we believe that you are experiencing renal colic. Our primary goal today in the ED was to evaluate you for any life-threatening conditions. Your evaluation was reassuring. You will be discharged with a prescription for Flomax. Take this as directed. Take the [place] as directed. You can additionally take 600 mg Ibuprofen 3 times a day with food and water. Stop taking the Ibuprofen if you get an upset stomach. You should follow-up with your primary doctor in the next week. Follow up with urology in the next few days. You should return to the ED immediately if you develop fevers, worsening abdominal pain, vomiting, cough, shortness of breath, chest pain, lightheadedness, weakness or any other concerning signs or symptoms. Thank you for letting us partake in your care today. Narcotic Pain Medicine You have been prescribed a narcotic for pain relief. These drugs are usually combined with acetaminophen (Tylenol#3, Percocet, Darvocet, Anexsia, Vicodin) or aspirin (Empirin#3, Percodan, Synalogs-DC) for increased effect. Narcotics act on the central nervous system to reduce pain; they also impair mental alertness and physical abilities. We advise you not to drink alcohol, drive a car, or operate dangerous equipment when you are taking these drugs. You can lessen stomach irritation from your medicine by taking it with meals or a full glass of water. Common side effects of narcotics are: Nausea and vomiting , heartburn, constipation, dizziness, sleepiness, and mood changes. If you have bothersome side effects or symptoms of an allergic reaction (itching, hives, rash), stop taking your medicine and call your doctor or the emergency room right away. Please keep your narcotic medicine well out of the reach of children. Referrals: Tariq Serra MD (PCP) Lucille Fletcher MD Attestation Portions of this note were transcribed by Tyesha Tolliver. I, Dr. Dobbs personally performed the history, physical exam and medical decision-making; I reviewed and confirmed the accuracy of the information in the transcribed note. Signed by: Jeet Newell, 06/10/2017. copies to: Tariq Serra MD; Lucille Fletcher MD, Beck O MD Jun 10, 2017 19:49 TYESHA TOLLIVER Jun 10, 2017 20:11
[2017-06-10] MEDS ORDERED: Ondansetron 2 mg/mL 2 mL Inj IVPUSH ONE (19:50)
[2017-06-10 20:33] LABS: APPEARANCE,URINE CLOUDY (CLEAR,HAZY); COLOR,URINE YELLOW (YELLOW); OCCULT BLOOD,URINE LARGE (NEGATIVE); PH,URINE 5.5 (5.0-8.0)
[2017-06-10] MEDS: HYDROmorphone 0.5 mg/0.5 mL iSecure Syringe IVPUSH PRN ×2 (20:34→21:04)
[2017-06-10 20:39] LABS: BASOPHILS % (AUTO) 0.5 % (0-3); EOSINOPHILS % (AUTO) 8.4 % (0-5); MONOCYTES % (AUTO) 7.2 % (4-12); Mean Corpuscular Hemoglobin 25.5 pg (27.0-35.0); Mean Corpuscular Volume 85.7 fL (81-100); Platelet Count 216 bil/L (150-400)
[2017-06-10] MEDS ORDERED: TAMS0.4C98 PO (20:50)
[2017-06-10] MEDS ORDERED: _HYDROcodone/APAP 5-325 mg Tablet PO PRN (20:55)
[2017-06-10 21:00] LABS: Magnesium 2.2 mg/dL (1.6-2.6)
[2017-06-10 21:47] VITALS: BP 144/80; PULSE 98; RESP 20; O2SAT 99
== END 2017-06-10 21:25 | disposition home or self-care (01) ==
LOC: SED 19:20
DX: N23 Unspecified renal colic (principal); E66.01 Morbid (severe) obesity due to excess calories; J45.909 Unspecified asthma, uncomplicated; Z68.45 Body mass index [BMI] 70 or greater, adult; Z87.442 Personal history of urinary calculi; Z79.52 Long term (current) use of systemic steroids; Z79.51 Long term (current) use of inhaled steroids; Z88.6 Allergy status to analgesic agent
CPT/HCPCS: 36415; 80053; 81000; 83690; 83735; 85025; 87086; 87088; 96374; 96375; 96376; 99285; J1170; J1885; J2405; J7030